=== PATIENT | male | born 2000 | race Caucasian/White ===

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

== ENCOUNTER 2020-11-12 17:37 | Emergency (ER) | payer MEDICAID ==
[~2020-11-12] VITALS: Ht 182.9 cm; Wt 81.6 kg
--- NOTE | 2020-11-12 18:07 | NUR ---
BIBS FROM HOME TO ER CH1. AAOX4. NOT IN RESP DISTRESS, BREATHING EVEN ADN UNLABOPRED. CAME IN FOR L LATERAL RIB PAIN X 1 WEEK S/P RUNNING INTO ANOTHER PERSON WHILE PLAYING BASKETBALL. PAIN IS RATED 10/10 AGGREVATED BY MOVEMENT AND BREATHING. TOOK MOTRIN BUT RELIEF IS SHORT. AWAITING MD FOR EVAL.
[2020-11-12] MEDS ORDERED: HYDROCODONE/APAP 10/325MG TABLET ONE (18:17)
[2020-11-12] MEDS ORDERED: ONDANSETRON 4 MG TAB.RAPDIS ONE (18:17)
[2020-11-12] MEDS: ONDANSETRON 4 MG TAB.RAPDIS SL ONE (18:19)
[2020-11-12] MEDS: HYDROCODONE/APAP 10/325MG TABLET PO ONE (18:19)
--- NOTE | 2020-11-12 18:20 | NUR ---
PT TO XRAY
--- NOTE | 2020-11-12 18:20 | NUR ---
Rakesh mai in [facility] - 11/12/20 at 1820 by ANNABELLE PT TO CT
[2020-11-12] MEDS ORDERED: IBUP-1957 PO (18:56)
[2020-11-12 19:02] VITALS: BP 132/80
--- NOTE | 2020-11-12 19:02 | NUR ---
Patient discharged to home in stable condition. Written and verbal after care instructions given. Patient verbalizes understanding of instruction.
== END 2020-11-12 19:03 | disposition home or self-care (01) ==
LOC: ER 17:39
DX: S20.212A Contusion of left front wall of thorax, initial encounter (principal); Z98.890 Other specified postprocedural states; Z79.899 Other long term (current) drug therapy; X58.XXXA Exposure to other specified factors, initial encounter; Y93.67 Activity, basketball; Y92.89 Other specified places as the place of occurrence of the external cause; Y99.8 Other external cause status
CPT/HCPCS: 71100; 99283; Q0162

== ENCOUNTER 2023-05-29 13:04 | Emergency (ER) | payer MEDICAID ==
[~2023-05-29] VITALS: Ht 185.4 cm; Wt 81.6 kg
[~2023-05-29 13:04] MED LIST: IBUP-1957 PO
[2023-05-29 13:07] VITALS: BP 104/52; TEMP 98.2; O2SAT 99
[2023-05-29] MEDS ORDERED: IBUP-1957 PO (13:59)
== END 2023-05-29 14:06 | disposition home or self-care (01) ==
LOC: ER 13:08
DX: S00.33XA Contusion of nose, initial encounter (principal); W50.0XXA Accidental hit or strike by another person, initial encounter; Y93.67 Activity, basketball; Y92.89 Other specified places as the place of occurrence of the external cause; Y99.8 Other external cause status